=== PATIENT | male | born 1980 | race Caucasian/White ===

== ENCOUNTER 2022-08-05 14:45 | Outpatient (CLI) | payer OTHER, SELFPAY ==
--- NOTE | 2022-08-05 15:00 | CRLHL7_ITS ---
For Patients: As a result of the Century Cures Act, medical imaging exams and procedure reports are released immediately into your electronic medical record. You may view this report before your referring provider. If you have questions, please contact your health care provider. INDICATION: Leg pain and swelling. TECHNIQUE: Ultrasound venous duplex lower right extremity. Compression venous exam was performed using tan-scale, color Doppler, and spectral Doppler analysis. COMPARISON: None. FINDINGS: Deep veins: Sonographic imaging demonstrates the right common femoral, deep femoral, superficial femoral, popliteal, posterior tibial and the contralateral right common femoral veins to be fully compressible with normal color Doppler blood flow. Superficial veins: Re- demonstration of superficial thrombus within the greater saphenous vein extending from the proximal thigh to the proximal calf. No popliteal cyst. IMPRESSION: Re- demonstration of superficial thrombus within the greater saphenous vein extending from the proximal thigh to the proximal calf. Otherwise, no DVT in the right lower extremity. Dictated by Dilip Benavidez MD @ 08/05/2022 4:43:18 PM (Electronically Signed)
== END 2022-08-05 14:46 | disposition home or self-care (01) ==
LOC: US 14:52
PROVIDERS: PCP Family Medicine; Visit Provider Family Medicine
DX: R22.41 Localized swelling, mass and lump, right lower limb (principal); I82.491 Acute embolism and thrombosis of other specified deep vein of right lower extremity; M79.605 Pain in left leg
CPT/HCPCS: 93971